=== PATIENT | male | born 1960 | race Two or more races ===

== ENCOUNTER 2024-03-18 12:28 | Emergency (ER) | payer OTHER ==
[~2024-03-18] VITALS: Ht 172.7 cm; Wt 64.9 kg
[2024-03-18] MEDS ORDERED: UROXATRAL10 MG PO (13:24)
[2024-03-18] MEDS ORDERED: ALTACE1.25 MG PO (13:24)
[2024-03-18] MEDS ORDERED: EZALLOR SPRINKLE5 MG PO (13:25)
[2024-03-18 14:31] LABS: HEMATOCRIT 40.4 % (39.0-48.0); HEMOGLOBIN 13.8 g/dL (13-16.00); MEAN CELL VOLUME 90.8 fL (80.0-100.00); MEAN CORPUSCULAR HEMOGLOBIN 31.1 pg (27.00-32.0); MEAN CORPUSCULAR HGB CONC 34.2 g/dl (32.0-36.0); PLATELET COUNT 227 K/uL (150-450); RED BLOOD COUNT 4.45 M/uL (4.00-6.00); RED CELL DISTRIBUTION WIDTH 13.8 % (11.5-14.5)
[2024-03-18 14:59] LABS: PH,URINE 6.5 (5.0-8.0); URINE APPEARANCE Clear; URINE BILIRRUBIN Negative (NEGATIVE); URINE BLOOD Negative; URINE COLOR Yellow; URINE GLUCOSE Negative (NEGATIVE); URINE KETONE Negative (NEGATIVE); URINE LEUKOCYTE Negative; URINE NITRATE Negative; URINE PROTEIN Negative (NEGATIVE); URINE UROBILINOGEN 0.2 E.U./dl
[2024-03-18 15:00] LABS: URINE BACTERIA 4.8 uL (0.0-1933)
[2024-03-18 15:37] LABS: URINE RBC 1.7 uL (0.0-20.8); URINE WBC 0.1 uL (0.0-23.2)
[2024-03-18] MEDS ORDERED: MIRALAX510 GM PO (16:18)
== END 2024-03-18 16:23 | disposition home or self-care (01) ==
LOC: ER 12:28
PROVIDERS: Emergency Medicine
DX: K59.00 Constipation, unspecified (principal); I10 Essential (primary) hypertension; Z85.46 Personal history of malignant neoplasm of prostate